=== PATIENT | male | born 2000 | race Two or more races ===

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

== ENCOUNTER 2024-05-30 16:10 | Emergency (ER) | payer OTHER, SELFPAY ==
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
--- OUTSIDE RECORDS SUMMARY | 2024-05-30 16:13 | XMS_ITS | Clinical Summary ---
Author Organization [facility] Address [facility] [place] [address] Care Team Providers Care Farm Planner Name Role Phone Butch Knight DO Primary Care Provider Allergies No known active allergies Medications No known medications Active Problems No known active problems Resolved Problems Problem Noted Date Diagnosed Date Resolved Date Sprain of right hip, initial encounter 02/17/2022 07/26/2023 Need for prophylactic vaccin ation and inoculation against meningococcus 12/21/20182019 Well child visit 11/26/2012 12/27/2019 Encounters Date Type Department Care Team Description 04/05/2024 Telephone [facility] Family Medicine - [address] [place] [address] Butch Knight, DO Information from Last 3 Months Immunizations Name Administration Dates Next Due Dtap (Acel-Immune) 05/24/2002,03/28/2002, 002 Dtap (Generic) 11/22/2006, 4,05/24/2002,03/28/2002 ,01/22/2002 Hepatitis A (Generic) 10/15/2015 Hepatitis B (Generic: Adult) 05/24/2002,03/28/20 02,2001 Hib Vaccine, Prp-Omp 06/06/2003,05/24/2002,03/28,01/22/2002 MMR (Generic) 11/22/2006,12/11/2002 Meningococcal (Menactra) 12/21/2018 Meningococcal Vac A,C,Y,W-135 Sc 11/27/2012 Pneumococcal (Prevnar 7) 12/11/2002,05/24/2002,1 2001,01/22/2002 Polio Ipv (Generic) 11/22/2006,12/11/2002,2001,01/22/2002 Tdap (Generic) 11/27/2012 Varicella Vaccine 03/14/2016,12/04/2006,12/12/19 03 Family History Medical History Relation Comments Colon Cancer Maternal Grandfather Colon Cancer Maternal Grandmother Relation Status Comments Brother Alive Father Alive Maternal Grandfather Maternal Grandmother Mother Alive Paternal Grandfather Paternal Grandmother Sister Alive Social History Tobacco Use Types Packs/Day Years Used Date Smoking Tobacco: Never Smokeless Tobacco: Never Tobacco Cessation:Counseling Given: Not Answered Alcohol Use Standard Drinks/Week Comments No 0 (1 standard drink = 0.6 oz pur e alcohol) AUDIT-C Answer Date Recorded Frequency of Alcohol Consumption Never 12/06/2018 Average Number of Drinks Not on file 019 Frequency of Binge Drinking Not on file 11/16 PHQ-2 Answer Date Recorded Patient Health Questionnaire-2 Score 0 07/26/2023 Sex and Gender Information Value Date Recorded Sex Assigned at Not on file Legal Sex Male 6:32 PM CDT Gender Identity Not on file Sexual Orientation Not on file Occupation Industry Job Start Date Job End Date student Not on file Not on file Not on file Last Filed Vital Signs Vital Sign Reading Time Taken Comments Blood Pressure 106/63 07/26/2023 3:31 PM CDT Pulse 70 07/26/2023 3:31 PM CDT Temperature 37.3 C (99.2 F) 07/26/2023 3:31 PM CDT Respiratory Rate - - Oxygen Saturation 96% 07/26/2023 3:31 PM CDT Inhaled Oxygen Concentration - - Weight 62.8 kg (138 lb 6.4 oz) 07/26/2023 3:31 P M CDT Height 180.3 cm (5' 11 ) 07/26/2023 3:31 PM CDT Body Mass Index 19.3 07/26/2023 3:31 PM CDT Plan of Treatment Upcoming Encounters Date Type Department Care Team (Late st Contact Info) Description 07/30/2024 1:20 PM CDT Office Visit [facility] Family Medicine - [address] [address] Butch Knight, DO [address] [place] [address] Health Maintenance Due Date Last Done Comments HPV Vaccines (1 - Male 3-dose series) 2016 Meningococcal B Vaccine (1 of 2 - Standard) 2017 Hepatitis C 11/21/2019 COVID-19 Vaccine (1 - season) 2023 Influenza Adult (#1) 2024 PHQ-2 (Physician [place]) 04/17/2024 07/26/2023 Annual Physical 07/25/2024 07/26/2023, 12/21/2018 DTaP, Tdap and Td Vaccines (7 - Td or Tdap) 07/25/2024 11/27/2012, 11/22/2006, 06/06/2003, Additional history exists Postponed from 11/27/2022 (Patient Refused) PHQ-2 (Physician [place]) 07/25/2024 07/26/2023 Hepatitis B Vaccines Completed 05/24/2002, 03/28/2002, 2001 Pneumococcal Vaccine: Pediatrics (0 to 5 Years) and At-Risk Patients (6 to 64 Years) Aged Out 12/11/2002, 05/24/2002, 03/28/2002, Additional history exists No longer eligible based on patient's age to complete this topic Meningococcal Vaccine Completed 12/21/2018, 013 RSV Immunizations Under 20 Months Aged Out No longer eligible based on patient's age to complete this topic Insurance AET[employer]-MERITAIN AET[employer]-MER[employer]AIN Care Teams Farm Planner Relationship Specialty Start Date End Date Butch Knight [place] [address] [place] [address] PCP - General FAMILY PRACTICE 06/06/23
[2024-05-30 16:14] VITALS: BP 131/67; PULSE 66; RESP 16; TEMP 36.6; O2SAT 99
--- OUTSIDE RECORDS SUMMARY | 2024-05-30 17:41 | XMS_ITS | Clinical Summary ---
Author Organization [facility] Address [facility] [place] [address] Care Team Providers Care Computational Geneticist Name Role Phone Butch Knigth DO Primary Care Provider Allergies No known active allergies Medications No known medications Active Problems No known active problems Resolved Problems Problem Noted Date Diagnosed Date Resolved Date Sprain of right hip, initial encounter 02/17/2022 07/26/2023 Need for prophylactic vaccin ation and inoculation against meningococcus 12/21/20182019 Well child visit 11/26/2012 12/27/2019 Encounters Date Type Department Care Team Description 04/05/2024 Telephone [facility] Family Medicine - [address] [place] [address] Butch Knight, DO Information from [...] Description 07/30/2024 1:20 PM CDT Office Visit [facility] Family Medicine - [address] [address] Butch Knight, DO [address] [place] [address] Health Maintenance Due Date Last Done Comments HPV Vaccines (1 - Male 3-dose series) 2016 Meningococcal B Vaccine (1 of 2 - Standard) 2017 Hepatitis C 11/21/2019 COVID-19 Vaccine (1 - season) 2023 Influenza Adult (#1) 2024 PHQ-2 (Physician [place]) 04/17/2024 07/26/2023 Annual Physical 07/25/2024 07/26/2023, 12/21/2018 DTaP, Tdap and Td Vaccines (7 - Td or Tdap) 07/25/2024 11/27/2012, 11/22/2006, 06/06/2003, Additional history exists Postponed from 11/27/2022 (Patient Refused) PHQ-2 (Physician [place]) 07/25/2024 07/26/2023 Hepatitis B Vaccines Completed 05/24/2002, [...] this topic Insurance AET[employer]-MERITAIN A[employer]-MER[employer]AIN Care Teams Computational Geneticist Relationship Specialty Start Date End Date Butch Knight [place] [address] [place] [address] PCP - General FAMILY PRACTICE 06/06/23
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
[2024-05-30 18:36] VITALS: BP 114/64; PULSE 63; RESP 18; O2SAT 99
== END 2024-05-30 20:04 | disposition home or self-care (01) ==
PROVIDERS: Emergency Provider Physician Assistant
DX: S16.1XXA Strain of muscle, fascia and tendon at neck level, initial encounter (principal); S86.912A Strain of unspecified muscle(s) and tendon(s) at lower leg level, left leg, initial encounter; V49.40XA Driver injured in collision with unspecified motor vehicles in traffic accident, initial encounter
CPT/HCPCS: 72040; 73564; 99284